=== PATIENT | male | born 1965 | race Caucasian/White ===

== ENCOUNTER 2023-10-01 14:46 | Outpatient (AMB) | payer OTHER, SELFPAY ==
--- NOTE | 2023-10-01 14:52 | A.OFFPC_ITS ---
Vital Signs 10/01/23 14:56 Height 5 ft 10 in Weight 193 lb 4 oz BMI 27.7 BP 128/76 Blood Pressure Location Lt brachial Position Sitting Respiration 16 Pulse 53 Pulse Source Pulse Oximeter Temp 98.7 F Temp Source Oral Pulse Oximetry (%) 98 Oxygen Delivery Method Room Air Intake Visit Reasons: est care Intake Note: New patient visit Allergies No Known Allergies Allergy (Verified 10/01/23 15:16) Medication List - Last Reconciled 10/01/23 by Krupa Aguilar PA-C diclofenac sodium 75 mg PO BID 30 days hydrochlorothiazide 25 mg PO DAILY losartan 50 mg PO DAILY omeprazole magnesium (Prilosec) 10 mg PO DAILY Tobacco use date assessed: 10/01/23 Dental Screening Dental Screen Date: 10/01/23 Did you have a dental visit in the last 12 months?: No Was dental information given to patient?: Patient has dentist HPI est care HPI Details Patient is a 58-year-old male with a significant past medical history of reactive airway disease related to URIs, hypertension, DRU on CPAP, aneurysm of brain, and GERD presenting today to follow up. He is transferring from [facility]. No records available for today's visit. CV: Blood pressure today in the office is 128/76. He is on losartan 50 mg and hydrochlorothiazide 25 mg. No chest pain, shortness on breath or palpitations. Neuro: Was seeing neurology for headaches while waiting for the workup sleep apnea. He states that he was diagnosed recently and on CPAP in his headaches have resolved. No longer on Topamax. He is still followed every 18 months with imaging of the aneurysm. This is managed by [facility]. GI: gerd well controlled with omeprazole. Musculoskeletal: Right achilles tendonitis was dx last year with Dr. Vázquez. He was put on diclofenac and states that was helpful and would like another refill. He states that he has an appointment with him next month to address his tendonitis and discuss if they should do an injection. Derm: Follows with [facility] for BCC. 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 1. Little interest or pleasure in doing things: not at all 2. Feeling down, depressed, or hopeless: not at all 3. Trouble falling or staying asleep, or sleeping too much: not at all 4. Feeling tired or having little energy: not at all 5. Poor appetite or overeating: not at all 6. Feeling bad about yourself - or that you are a failure or have let yourself or your family down: not at all 7. Trouble concentrating on things, such as reading the newspaper or watching television: not at all 8. Moving or speaking so slowly that other people could have noticed. Or the opposite - being so fidgety or restless that you have been moving around a lot more than usual: not at all 9. Thoughts that you would be better off or of hurting yourself in some way: not at all Total score: 0 Depression Screening Interpretation: Negative Depression Screening Done: Yes 31044 - PHQ-9 Billing: Yes Source: Developed by Drs. Felice Jaems, Mag Alan, Igor West and colleagues, with an educational jesusita from [employer]. Thrive Questionnaire I am a: Patient What is your living situation today?: I have a steady place to live Within the past 12 months, did the food you bought not last and you didn't have the money to get more?: Never true Within the past 12 months, did you worry whether your food would run out before you got money to buy more?: Never true Do you have trouble paying for medicines?: No Do you have trouble getting transportation to medical appointments?: No Do you have trouble paying your heating and electricity bill?: No Do you have trouble taking care of your child, family member or friend?: No Do you have trouble with day-to-day activities such as bathing, preparing meals, shopping, managing finances, etc.?: No Are you currently unemployed and looking for a job?: No Are you interested in more education?: No Please select the resources that you would like help with: None Currently or been in a relationship where the following occur: no concerns reported THRIVE Score: 0 AUDIT C Alcohol Use Questionnaire (AUDIT-C) 1. How often do you have a drink containing alcohol?: 2-3 times a week 2. How many drinks containing alcohol do you have on a typical day when you are drinking?: 1 or 2 3. How often do you have six or more drinks on one occasion?: Less than monthly Total Score: 4 Score Reviewed/Action Taken: Yes ROSARIO-7 AMB Questionnaire ROSARIO-7 Feeling nervous, anxious, or on edge: 0 = Not at all Not being able to stop or control worryin = Not at all Worrying too much about different things: 0 = Not at all Trouble relaxin = Not at all Being so restless that it is hard to sit still: 0 = Not at all Becoming easily annoyed or irritable: 0 = Not at all Feeling afraid as if something awful might happen: 0 = Not at all Total ROSARIO-7 score (0-4 normal; 5-9 mild; 10-14 moderate; 15-21 severe): 0 Source: Developed by Drs. Felice James, Mag Alan, Igor West and colleagues, with an educational jesusita from [employer]. Physical exam (Primary Care) Vital Signs: Last Vital Signs Temp 98.7 F 10/01/23 14:56 Pulse 53 10/01/23 14:56 Resp 16 10/01/23 14:56 BP 128/76 10/01/23 14:56 Pulse Ox 98 10/01/23 14:56 Oxygen Delivery Method Room Air 10/01/23 14:56 BMI result Body Mass Index 27.7 Tobacco/Smoking Status: Tobacco use Status Tobacco use date assessed 10/01/23 10/01/23 14:59 e-Cigarette/Vaping Use Never Used 10/01/23 14:59 Depression Screening Interpretation: Negative Currently or been in a relationship where the following occur: no concerns reported Const Orientation/consciousness: patient oriented x3 HENMT Ears: hearing grossly normal bilaterally Neck Thyroid: Thyroid normal Lymphatic: no lymphadenopathy noted Resp Auscultation: clear to auscultation bilaterally Cardio Rate: regular rate Rhythm: regular rhythm Heart sounds: S1 normal heart sound present and S2 normal heart sound present GI Inspection: Yes normal to inspection Palpation (GI): Soft to palpation and Other GI palpation findings present (nontender, no cva tenderness) Auscultation: normoactive bowel sounds Rectal Exam - Male: Yes deferred Skin General skin exam: no rashes or lesions noted Neuro General: patient oriented x3, gait normal and no focal motor deficits Assessment and Plan Assessment & Plan (1) HTN (hypertension), benign: Code(s): I10 - Essential (primary) hypertension Plan: Well-controlled. Continue current regimen. Labs ordered. Refills provided. (2) Right Achilles tendinitis: Code(s): M76.61 - Achilles tendinitis, right leg Plan: Follows with Podiatry. Refilled diclofenac. (3) DRU on CPAP: Code(s): G47.33 - Obstructive sleep apnea (adult) (pediatric) Plan: Managed by sleep medicine. Compliant. Medications: New diclofenac sodium 75 mg PO BID 30 days 60 tabs 1RF losartan 50 mg PO DAILY 90 tabs 3RF hydrochlorothiazide 25 mg PO DAILY 90 tabs 3RF albuterol sulfate 90 mcg/actuation 2 puffs inhalation Q4-6H PRN 8.5 grams 0RF shortness of breath or wheezing Coding Level of Care Code Est Pt Level 4 (23355) Complex EM visit Add On G2211 Diagnoses HTN (hypertension), benign I10 Right Achilles tendinitis M76.61 DRU on CPAP G47.33
[2023-10-01 14:56] VITALS: BP 128/76; PULSE 53; RESP 16; TEMP 37.1; O2SAT 98; BMI 27.7
== END 2023-10-01 15:32 | disposition home or self-care (01) ==
PROVIDERS: Visit Provider Physician Assistant
DX: I10 Essential (primary) hypertension (principal); M76.61 Achilles tendinitis, right leg; G47.33 Obstructive sleep apnea (adult) (pediatric)
CPT/HCPCS: 99214; G2211

== ENCOUNTER 2024-05-25 15:19 | Outpatient (AMB) | payer BC, SELFPAY ==
--- NOTE | 2024-05-25 15:20 | MHC.PC.OV ---
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: No Allergies No Known Allergies Allergy (Verified 05/25/24 15:21) Medication List - Last Reconciled 05/25/24 by Krupa Aguilar PA-C albuterol sulfate 90 mcg/actuation 2 puffs inhalation Q4-6H PRN diclofenac sodium 75 mg PO BID 30 days hydrochlorothiazide 25 mg PO DAILY losartan 50 mg PO DAILY omeprazole magnesium (Prilosec) 10 mg PO DAILY Tobacco use date assessed: 10/01/23 Dental Screening Dental Screen Date: 10/01/23 HPI Annual PE (GET INS) HPI Details Patient is a 58-year-old male with a significant past medical history of reactive airway disease related to URIs, hypertension, DRU on CPAP, aneurysm of brain, and GERD presenting today to follow up. He is transferring from [facility]. No records available for today's visit. He never got labs from September that were ordered (CBC, CMP, TSH, PSA, lipid). These will be reordered today and updated. CV: Blood pressure today in the office is 136/74.. He is on losartan 50 mg and hydrochlorothiazide 25 mg. No chest pain, shortness on breath or palpitations. Neuro: Was seeing neurology for headaches while waiting for the workup sleep apnea. He states that he was diagnosed and on CPAP in his headaches have resolved. No longer on Topamax. He is still followed every 18 months with imaging of the aneurysm. This is managed by [facility]. He states that his neurologist left knee has not been assigned anybody else and needs a new referral because he is coming up to needing his imaging. GI: gerd well controlled with omeprazole. Musculoskeletal: Right achilles tendonitis was dx last year with Dr. Vázquez. He was put on diclofenac and states that was helpful and would like another refill. 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 Derm: Follows with [facility] for BCC. 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 1. Little interest or pleasure in doing things: not at all 2. Feeling down, depressed, or hopeless: not at all 3. Trouble falling or staying asleep, or sleeping too much: not at all 4. Feeling tired or having little energy: not at all 5. Poor appetite or overeating: not at all 6. Feeling bad about yourself - or that you are a failure or have let yourself or your family down: not at all 7. Trouble concentrating on things, such as reading the newspaper or watching television: not at all 8. Moving or speaking so slowly that other people could have noticed. Or the opposite - being so fidgety or restless that you have been moving around a lot more than usual: not at all 9. Thoughts that you would be better off or of hurting yourself in some way: not at all Total score: 0 Depression Screening Interpretation: Negative Depression Screening Done: Yes 58943 - PHQ-9 Billing: Yes Source: Developed by Drs. Felice James, Mag Alan, Igor West and colleagues, with an educational jesusita from [employer]. Thrive Questionnaire Date Thrive assessed: 05/25/24 I am a: Patient What is your living situation today?: I have a steady place to live Within the past 12 months, did the food you bought not last and you didn't have the money to get more?: Never true Within the past 12 months, did you worry whether your food would run out before you got money to buy more?: Never true Do you have trouble paying for medicines?: No Do you have trouble getting transportation to medical appointments?: No Do you have trouble paying your heating and electricity bill?: No Do you have trouble taking care of your child, family member or friend?: No Do you have trouble with day-to-day activities such as bathing, preparing meals, shopping, managing finances, etc.?: No Are you currently unemployed and looking for a job?: No Are you interested in more education?: No Please select the resources that you would like help with: None Currently or been in a relationship where the following occur: No concerns reported THRIVE Score: 0 AUDIT C Alcohol Use Questionnaire (AUDIT-C) 1. How often do you have a drink containing alcohol?: 2-3 times a week 2. How many drinks containing alcohol do you have on a typical day when you are drinking?: 1 or 2 3. How often do you have six or more drinks on one occasion?: Less than monthly Total Score: 4 ROSARIO-7 AMB Questionnaire ROSARIO-7 Date ROSARIO - 7 assessed: 05/25/24 Feeling nervous, anxious, or on edge: 0 = Not at all Not being able to stop or control worryin = Not at all Worrying too much about different things: 0 = Not at all Trouble relaxin = Not at all Being so restless that it is hard to sit still: 0 = Not at all Becoming easily annoyed or irritable: 0 = Not at all Feeling afraid as if something awful might happen: 0 = Not at all Total ROSARIO-7 score (0-4 normal; 5-9 mild; 10-14 moderate; 15-21 severe): 0 Source: Developed by Drs. Felice James, Mag Alan, Igor West and colleagues, with an educational jesusita from [employer]. ROSARIO-7 Assessment Billing ROSARIO-7 Assessment Tool: ROSARIO-7 Assessment 11608 Physical exam (Primary Care) Vital Signs: Last Vital Signs Pulse 55 05/25/24 15:23 Resp 13 05/25/24 15:23 BP 136/74 05/25/24 15:23 Pulse Ox 94 05/25/24 15:23 Oxygen Delivery Method Room Air 05/25/24 15:23 BMI result Body Mass Index 38.3 Tobacco/Smoking Status: Tobacco use Status Tobacco use date assessed 10/01/23 05/25/24 15:21 Patient Tobacco Use Status Never used Tobacco 05/25/24 15:25 e-Cigarette/Vaping Use Never Used 05/25/24 15:21 PHQ-9: PHQ-9 Score PHQ-9: Total score 0 05/25/24 15:21 Depression Screening Interpretation: Negative Thrive Assessment: Date of Thrive Assessment Date Thrive assessed 05/25/24 05/25/24 15:21 Currently or been in a relationship where the following occur: No concerns reported Const Orientation/consciousness: patient oriented x3 HENMT Ears: hearing grossly normal bilaterally Neck Thyroid: Thyroid normal Lymphatic: no lymphadenopathy noted Resp Auscultation: clear to auscultation bilaterally Cardio Rate: regular rate Rhythm: regular rhythm Heart sounds: S1 normal heart sound present and S2 normal heart sound present GI Inspection: Yes normal to inspection Palpation (GI): Soft to palpation and Other GI palpation findings present (nontender, no cva tenderness) Auscultation: normoactive bowel sounds Rectal Exam - Male: Yes deferred Skin General skin exam: no rashes or lesions noted Neuro General: patient oriented x3, gait normal and no focal motor deficits Coding Level of Care Code Est Pt Prev Care 40-64y(97485) Diagnoses Routine general medical examination at a health care facility Z00.00 HTN (hypertension), benign I10 DRU on CPAP G47.33 Right Achilles tendinitis M76.61 Brain aneurysm I67.1 Additional Codes ROSARIO-7 Assessment Billing - ROSARIO-7 Assessment Tool: ROSARIO-7 Assessment 38982 ([id number]) PHQ-9 - 74605 - PHQ-9 Billing: Yes ([id number]) Assessment & Plan Assessment & Plan (1) Routine general medical examination at a health care facility: Code(s): Z00.00 - Encounter for general adult medical examination without abnormal findings Plan: Health maintenance reviewed. Labs ordered today. We will follow up pending test results. Flu shot given today. (2) HTN (hypertension), benign: Code(s): I10 - Essential (primary) hypertension Category: Medical Plan: WNL. Continue current regimen (3) DRU on CPAP: Code(s): G47.33 - Obstructive sleep apnea (adult) (pediatric) Category: Medical Plan: Continue management. (4) Right Achilles tendinitis: Code(s): M76.61 - Achilles tendinitis, right leg Category: Medical Plan: Referral to [facility] (5) Brain aneurysm: Code(s): I67.1 - Cerebral aneurysm, nonruptured Category: Medical Plan: Referral back to [facility] Plan Referral to derm. Follow up in 6 months. Sooner if needed. Orders: Orders Comprehensive Irons. Panel Fast Today I10 - Essential (primary) hypertension, M76.61 - Achilles tendinitis, right leg Complete Blood Count Auto Diff Today I10 - Essential (primary) hypertension, M76.61 - Achilles tendinitis, right leg Lipid Panel Today I10 - Essential (primary) hypertension, M76.61 - Achilles tendinitis, right leg TSH reflex Free T4 Today I10 - Essential (primary) hypertension, M76.61 - Achilles tendinitis, right leg UA CC w/rflx Micro + Cult Today I10 - Essential (primary) hypertension, M76.61 - Achilles tendinitis, right leg, Z13.220 - Encounter for screening for lipoid disorders Prostate Specific Antigen Scr Today I10 - Essential (primary) hypertension, M76.61 - Achilles tendinitis, right leg, Z01.89 - Encounter for other specified special examinations Referrals Neurology Referral I67.1 - Cerebral aneurysm, nonruptured, R51.9 - Headache, unspecified Orthopedics Referral M76.61 - Achilles tendinitis, right leg Dermatology Referral C44.91 - Basal cell carcinoma of skin, unspecified
[2024-05-25 15:23] VITALS: BP 136/74; PULSE 55; RESP 13; O2SAT 94; BMI 38.3
== END 2024-05-25 17:05 ==
PROVIDERS: PCP Physician Assistant; Visit Provider Physician Assistant
DX: Z00.00 Encounter for general adult medical examination without abnormal findings (principal); I10 Essential (primary) hypertension; G47.33 Obstructive sleep apnea (adult) (pediatric); M76.61 Achilles tendinitis, right leg; I67.1 Cerebral aneurysm, nonruptured; Z23 Encounter for immunization

== ENCOUNTER → 2024-05-25 15:19 | Outpatient (BNVA) | payer BC, SELFPAY | PROVIDERS: PCP Physician Assistant; Visit Provider Physician Assistant | DX: Z00.00 Encounter for general adult medical examination without abnormal findings (principal); Z23 Encounter for immunization; I10 Essential (primary) hypertension; G47.33 Obstructive sleep apnea (adult) (pediatric); M76.61 Achilles tendinitis, right leg; K21.9 Gastro-esophageal reflux disease without esophagitis; I67.1 Cerebral aneurysm, nonruptured; Z79.899 Other long term (current) drug therapy; Z99.89 Dependence on other enabling machines and devices | CPT/HCPCS: 90471; 90656; 96127 ==

== ENCOUNTER 2025-02-02 07:49 | Outpatient (REF) | payer OTHER, SELFPAY ==
--- NOTE | ~2025-02-02 | US_ITS ---
EXAMINATION: US ABDOMEN COMPLETE WITH LIVER ELASTOGRAPHY HISTORY: R79.89 - Other specified abnormal findings of blood chemistry TECHNIQUE: Real-time grayscale ultrasound imaging of the abdomen was performed and images were reviewed. COMPARISON: There are no prior studies available for comparison. FINDINGS: Liver: The right lobe of the liver measures 17.9 cm in size. The left lobe of the liver measures 15.4 cm in size. The liver demonstrates increased echotexture, consistent with steatosis. The liver contour appears nodular, suggestive of cirrhosis. No focal mass or intrahepatic biliary ductal dilatation is identified. There is normal hepatopedal flow in the portal vein. Ultrasound elastography of the liver was performed with 10 separate measurements of the liver parenchyma with the patient in the supine position. Measurements were obtained approximately 2 cm below Demetris's capsule and perpendicular to the capsule. The median shear wave velocity is 2.06 m/s. The interquartile range/median (IQR/median) is 0.10. Gallbladder and biliary tree: The gallbladder is unremarkable, without evidence of calculi, wall thickening, or pericholecystic fluid. There is no sonographic Thompson sign. The common bile duct is normal in caliber measuring 4 mm. Kidneys: The right kidney measures 11.9 cm in length and demonstrates a 2.3 x 2.8 x 2.6 cm upper pole cyst. The left kidney measures 12.3 cm in length. The kidneys are unremarkable, without evidence of masses, hydronephrosis, or calculi. Pancreas: The pancreatic head, neck, and body are unremarkable. The pancreatic tail is obscured by bowel gas. Spleen: The spleen is top normal in size, measuring 12.4 cm in length. Abdominal aorta and inferior vena cava: The visualized portions of the abdominal aorta and inferior vena cava are normal in caliber. There is no free fluid in the abdomen. US/US abdomen comp w elastography IMPRESSION: Hepatomegaly and hepatic steatosis. Nodular liver contour, suggestive of cirrhosis. The median shear wave velocity in the liver is 2.06 m/s, corresponding to a median liver stiffness of 13.00 kPa. The IQR/median value is 0.10. This is indicative of a quality data set. Findings are indicative of a high elastography value suggestive of compensated advanced chronic liver disease. REFERENCE: Society of Radiologists in Ultrasound Liver Stiffness Thresholds (2020): LIVER STIFFNESS THRESHOLDS: *Shear wave velocity less than 1.3 m/s (Liver Stiffness equal or less than 5 kPa): High probability of being normal. *Shear wave velocity less than 1.7 m/s (Liver Stiffness less than 9 kPa): In the absence of other known clinical signs, rules out compensated advanced chronic liver disease. *Shear wave velocity between 1.7-2.1 m/s (Liver Stiffness 9-13 kPa): Suggestive of compensated advanced chronic liver disease but need further test for confirmation. *Shear wave velocity between 2.1-2.4 m/s (Liver Stiffness 13-17 kPa): Rules in compensated advanced chronic liver disease. *Shear wave velocity greater than 2.4 m/s (Liver Stiffness over 17 kPa): Suggestive of clinically significant portal hypertension. QUALITY OF DATA SET: *IQR/Median value equal or less than 0.15 implies a quality data set. *IQR/Median value over 0.15 implies a poor quality data set. SIGNIFICANT CHANGE FROM PRIOR EXAM: Significant change if liver stiffness measurement is 10% or greater from prior exam. OTHER CONSIDERATIONS: The stage of liver fibrosis may be overestimated in the setting of acute hepatitis, liver inflammation, elevated liver function tests, hepatic vascular congestion, obstructive cholestasis, non-fasting state, and infiltrative diseases such as amyloidosis and lymphoma. In some patients with NAFLD, the liver stiffness thresholds for compensated advanced chronic liver disease may be lower. In causes other than viral hepatitis and NAFLD, liver stiffness thresholds are not well established. Electronically signed by: Felice Villagran MD 02/02/2025 08:36 AM EDT
== END 2025-02-02 07:50 | disposition home or self-care (01) ==
LOC: HO.US 07:49
PROVIDERS: PCP Physician Assistant; Visit Provider Physician Assistant
DX: R79.89 Other specified abnormal findings of blood chemistry (principal); D69.6 Thrombocytopenia, unspecified
CPT/HCPCS: 76700; 76981

== ENCOUNTER → 2025-02-02 07:50 | Outpatient (BNV) | payer OTHER, SELFPAY | PROVIDERS: PCP Physician Assistant; Visit Provider Radiology Diagnostic Radiology | DX: R16.0 Hepatomegaly, not elsewhere classified (principal); K76.0 Fatty (change of) liver, not elsewhere classified | CPT/HCPCS: 76700 ==

== ENCOUNTER 2025-03-02 09:16 | Outpatient (AMB) | payer OTHER, SELFPAY ==
--- NOTE | 2025-03-02 09:22 | A.OFFPC_ITS ---
Vital Signs 03/02/25 09:23 Height 5 ft 10 in Weight 274 lb 4 oz BMI 39.3 BP 136/84 Blood Pressure Location Lt brachial Position Sitting Respiration 16 Pulse 55 Pulse Source Pulse Oximeter Pulse Oximetry (%) 95 Oxygen Delivery Method Room Air Intake Visit Reasons: f/u htn /Labs & Ultrasound Imaging Intake Note: Labs and ultrasound results. 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: No Allergies No Known Allergies Allergy (Verified 03/02/25 09:22) Medication List - Last Reconciled 03/02/25 by Krupa Aguilar PA-C albuterol sulfate 90 mcg/actuation 2 puffs inhalation Q4-6H PRN diclofenac sodium 75 mg PO BID 30 days hydrochlorothiazide 25 mg PO DAILY losartan 50 mg PO DAILY omeprazole magnesium (Prilosec) 10 mg PO DAILY Tobacco use date assessed: 03/02/25 Dental Screening Dental Screen Date: 10/01/23 Did you have a dental visit in the last 12 months?: Yes Did you have a dental problem in the last 6 months where you did not have access to dental care?: No Was dental information given to patient?: Patient has dentist HPI f/u htn /Labs & Ultrasound Imaging HPI Details Patient is a 60-year-old male with a significant past medical history of reactive airway disease related to URIs, hypertension, DRU on CPAP, aneurysm of brain, and GERD presenting today to follow up. CV: Blood pressure today in the office is 136/74.. He is on losartan 50 mg and hydrochlorothiazide 25 mg. No chest pain, shortness on breath or palpitations. Neuro: He had a recent MRA and was told that he no longer needs to follow with neurology for the brain aneurysm. It has been stable and completely unchanged. Headaches have also resolved with treatment for obstructive sleep apnea. GI: gerd well controlled with omeprazole. Recent abdominal ultrasound consistent with cirrhosis. He states that his last few abdominal ultrasounds were consistent with fatty liver. He was previously drinking and states that he has completely stopped. He is working on lifestyle modifications. He is working to lose weight and try to change his diet. Not currently interested in a medication like Wegovy. Musculoskeletal: Right achilles tendonitis was dx last year with Dr. Vázquez. He states it is overall well-controlled. Derm: Follows with [facility] for BCC. 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 Current occupational exposures/hazards: Yes (past) Cognitive needs: No Hearing needs: No Vision needs: No Questionnaire Thrive Questionnaire Date Thrive assessed: 05/25/24 I am a: Patient What is your living situation today?: I have a steady place to live Within the past 12 months, did the food you bought not last and you didn't have the money to get more?: Never true Within the past 12 months, did you worry whether your food would run out before you got money to buy more?: Never true Do you have trouble paying for medicines?: No Do you have trouble getting transportation to medical appointments?: No Do you have trouble paying your heating and electricity bill?: No Do you have trouble taking care of your child, family member or friend?: No Do you have trouble with day-to-day activities such as bathing, preparing meals, shopping, managing finances, etc.?: No Are you currently unemployed and looking for a job?: No Are you interested in more education?: No Please select the resources that you would like help with: None Currently or been in a relationship where the following occur: No concerns reported THRIVE Score: 0 AUDIT C Alcohol Use Questionnaire (AUDIT-C) 1. How often do you have a drink containing alcohol?: Never 3. How often do you have six or more drinks on one occasion?: Never Total Score: 0 ROSARIO-7 AMB Questionnaire ROSARIO-7 Date ROSARIO - 7 assessed: 05/25/24 Source: Developed by Drs. Felice James, Mag Alan, Igor West and colleagues, with an educational jesusita from [employer]. Physical exam (Primary Care) Vital Signs: Last Vital Signs Pulse 55 03/02/25 09:23 Resp 16 03/02/25 09:23 BP 136/84 03/02/25 09:23 Pulse Ox 95 03/02/25 09:23 Oxygen Delivery Method Room Air 03/02/25 09:23 BMI result Body Mass Index 39.3 Tobacco/Smoking Status: Tobacco use Status Tobacco use date assessed 03/02/25 03/02/25 09:24 Patient Tobacco Use Status Never used Tobacco 03/02/25 09:24 e-Cigarette/Vaping Use Never Used 03/02/25 09:24 Thrive Assessment: Date of Thrive Assessment Date Thrive assessed 05/25/24 03/02/25 09:24 Currently or been in a relationship where the following occur: No concerns reported Const Orientation/consciousness: patient oriented x3 HENMT Ears: hearing grossly normal bilaterally Neck Thyroid: Thyroid normal Lymphatic: no lymphadenopathy noted Resp Auscultation: clear to auscultation bilaterally Cardio Rate: regular rate Rhythm: regular rhythm Heart sounds: S1 normal heart sound present and S2 normal heart sound present GI Inspection: Yes normal to inspection Palpation (GI): Soft to palpation and Other GI palpation findings present (nontender, no cva tenderness) Auscultation: normoactive bowel sounds Rectal Exam - Male: Yes deferred Skin General skin exam: no rashes or lesions noted Neuro General: patient oriented x3, gait normal and no focal motor deficits Coding Level of Care Code Est Pt Level 4 (93795) Complex EM visit Add On G2211 Diagnoses HTN (hypertension), benign I10 DRU on CPAP G47.33 Cirrhosis K74.60 Assessment & Plan Assessment & Plan (1) HTN (hypertension), benign: Code(s): I10 - Essential (primary) hypertension Category: Medical Plan: WNL. Continue current regimen (2) DRU on CPAP: Code(s): G47.33 - Obstructive sleep apnea (adult) (pediatric) Category: Medical Plan: Falling asleep medicine (3) Cirrhosis: Code(s): K74.60 - Unspecified cirrhosis of liver Category: Medical Plan: Has referral to GI. Has quit drinking. Orders: Orders Basic Metabolic Panel Today G47.33 - Obstructive sleep apnea (adult) (pediatric), I10 - Essential (primary) hypertension, K74.60 - Unspecified cirrhosis of liver Hemoglobin A1c Today G47.33 - Obstructive sleep apnea (adult) (pediatric), I10 - Essential (primary) hypertension, K74.60 - Unspecified cirrhosis of liver, R73.01 - Impaired fasting glucose Liver Panel Today G47.33 - Obstructive sleep apnea (adult) (pediatric), I10 - Essential (primary) hypertension, K74.60 - Unspecified cirrhosis of liver Complete Blood Count Auto Diff Today G47.33 - Obstructive sleep apnea (adult) (pediatric), I10 - Essential (primary) hypertension, K74.60 - Unspecified cirrhosis of liver Medications: Refilled losartan 50 mg PO DAILY 90 tabs 3RF diclofenac sodium 75 mg PO BID 60 tabs 1RF 30 days albuterol sulfate 90 mcg/actuation 2 puffs inhalation Q4-6H PRN 8.5 grams 0RF shortness of breath or wheezing hydrochlorothiazide 25 mg PO DAILY 90 tabs 3RF Patient Instructions: paul
[2025-03-02 09:23] VITALS: BP 136/84; PULSE 55; RESP 16; O2SAT 95; BMI 39.3
== END 2025-03-02 10:09 | disposition home or self-care (01) ==
LOC: HO.HMCFM 09:16
PROVIDERS: PCP Physician Assistant; Visit Provider Physician Assistant
DX: I10 Essential (primary) hypertension (principal); G47.33 Obstructive sleep apnea (adult) (pediatric); K74.60 Unspecified cirrhosis of liver